=== PATIENT | female | born 1970 | race Caucasian/White ===

== ENCOUNTER 2017-04-22 16:09 | Outpatient (CLI) | payer MEDICAID ==
--- NOTE | 2017-04-23 11:27 | XRAY Report ---
LEFT ELBOW: 04/22/2017 COMPARISON: None. INDICATION: Elbow pain. TECHNIQUE: Two views. FINDINGS: Normal alignment. No evidence of acute fracture. No degenerative changes. Soft tissues grossly unremarkable without effusion. IMPRESSION: NEGATIVE ELBOW. TD: 04/23/2017 11:25 MTDD
== END 2017-04-22 16:10 | disposition home or self-care (01) ==
LOC: DI.S 16:09
PROVIDERS: ATTEND Nurse Practitioner Family
DX: M25.522 Pain in left elbow (principal)

== ENCOUNTER 2017-08-02 14:24 | Outpatient (CLI) | END 2017-08-02 14:25 | disposition home or self-care (01) ==

== ENCOUNTER 2017-11-05 14:26 | Outpatient (CLI) | payer MEDICAID ==
--- NOTE | 2017-11-05 16:03 | XRAY Report ---
Reason: KNEE PAIN,RIGHT Procedure Date: 11/05/2017 Accession Number: [id number] / [id number] Procedure: XR - Knee 3 View RT CPT Code: FULL RESULT: EXAM: RIGHT KNEE RADIOGRAPHY EXAM DATE: 11/05/2017 02:47 PM. CLINICAL HISTORY: KNEE PAIN,RIGHT. COMPARISON: None. TECHNIQUE: 3 views. FINDINGS: Bones: Normal. No fractures or bone lesions. Joints: Osteophyte superior patella. No effusion. No subluxations. Soft Tissues: Calcification in the patellar tendon distally.. No soft tissue swelling. IMPRESSION: Mild DJD [facility]
== END 2017-11-05 14:27 | disposition home or self-care (01) ==
LOC: DI 14:26
PROVIDERS: ATTEND Family Medicine
DX: M17.11 Unilateral primary osteoarthritis, right knee (principal)

== ENCOUNTER 2017-11-26 15:00 | Outpatient (CLI) | payer MEDICAID ==
--- NOTE | 2017-11-26 17:27 | XRAY Report ---
Reason: FOOT PAIN,LEFT Procedure Date: 11/26/2017 Accession Number: [id number] / [id number] Procedure: XR - Foot 2 View LT CPT Code: FULL RESULT: EXAM: LEFT FOOT RADIOGRAPHY EXAM DATE: 11/26/2017 03:19 PM. CLINICAL HISTORY: Injury (dropped frozen chicken on foot) 2 months ago. Persistent pain and dorsal edema, centered over the distal aspect of the first metatarsal. COMPARISON: FOOT 2 VIEW LT 08/02/2017 2:40 PM FOOT 3 VIEW LT 10/07/2015 1:05 PM FOOT 3 VIEW LT 07/12/2017 3:50 PM. TECHNIQUE: 2 views. FINDINGS: Bones: Normal. No fractures or bone lesions. Note that there is stable bipartite sesamoid bone along the medial plantar aspect of the first metatarsal head. Avulsion fracture lateral aspect base first distal phalanx, stable since 10/07/2015. Joints: Normal. No subluxations. Soft Tissues: Normal. No soft tissue swelling. IMPRESSION: No acute nor subacute bony abnormality. RAD[facility]
== END 2017-11-26 15:01 | disposition home or self-care (01) ==
LOC: DI 15:00
PROVIDERS: ATTEND Internal Medicine
DX: M79.672 Pain in left foot (principal); M79.89 Other specified soft tissue disorders

== ENCOUNTER 2018-02-28 08:50 | Outpatient (CLI) | payer MEDICAID ==
[2018-02-28] MEDS ORDERED: GADOBUTROL 10 MMOL/10 ML VIAL ONE (08:59)
[2018-02-28] MEDS ORDERED: GADOBUTROL 10 MMOL/10 ML VIAL IVP ONE (09:55)
--- NOTE | 2018-02-28 13:41 | MRI Report ---
Reason: MASS OF LEFT FOOT JOINT Procedure Date: 02/28/2018 Accession Number: [id number] / [id number] Procedure: MRI - Foot LT W/WO CPT Code: FULL RESULT: EXAM: LEFT HINDFOOT MRI WITHOUT AND WITH CONTRAST EXAM DATE: 02/28/2018 10:18 AM. CLINICAL HISTORY: Mass of left foot joint. COMPARISON: Radiographs 11/26/2017. TECHNIQUE: Multiplanar, multisequence T1-weighted and fluid-sensitive sequences of the hindfoot before and after administration of intravenous contrast. IV contrast: 9 mL of Gadavist. Other: None. FINDINGS: Bones: Diffuse bone marrow edema throughout the intermediate cuneiform. Subchondral fracture at the central to dorsal aspect distal articular surface. Mild contour deformity at the dorsal cortex. Ill-defined patchy bone marrow edema in the medial and lateral cuneiforms, lateral aspect of the navicular, and proximal aspects second and to a lesser extent third metatarsals. Subtle bone marrow edema at the dorsal aspect of the navicular and to a lesser extent talus at the capsular insertion and dorsal and lateral aspect of the talar neck. Subtle bone marrow edema and cystic changes at the dorsal aspect calcaneocuboid joint, likely degenerative. Foci of susceptibility artifact at the distal fibula, consistent with prior surgery. Articular Cartilage: Shallow partial-thickness cartilage loss at the tibiotalar joint. No focal defect. Ligaments: Sequelae of old sprains at the medial and lateral ligamentous structures. Distortion at the anterior talofibular ligament. A component of this may be due to scar. Intact fibers difficult to discern. Anterior tendons: Tibialis anterior, extensor hallucis longus, and extensor digitorum tendons unremarkable. Medial tendons: Tibialis posterior, flexor digitorum, and flexor hallucis longus tendons unremarkable. Lateral tendons: Moderate thickening at the peroneus longus and brevis tendons at the fibular tip. Flattened and distorted appearance of the peroneus longus tendon at the peroneal tubercle, concerning for intrasubstance tear. Suggestion of peroneus brevis tenodesis at the anterior aspect distal fibula. Fluid sensitive hyperintense signal in the substance of the proximal-most fibers. Distal insertion intact. Musculature: Mild fatty atrophy in the quadratus plantae and abductor digiti minimi muscles. This can be seen in the setting of lateral plantar nerve injury. Mild edema in the dorsal extensor musculature and dorsal aspect of the interosseous muscles adjacent to the second and third metatarsals. Other: No large joint effusion. Mild thickening and distortion of the dorsal talonavicular joint capsule. Minimal edema in the sinus tarsi. Tarsal tunnel unremarkable. Ill-defined mild to moderate subcutaneous edema and enhancement over the dorsal aspect of the naviculocuneiform joint. 0.3 x 0.5 x 0.5 cm focus of fluid present at the dorsal and lateral aspect naviculocuneiform joint with adjacent edema and enhancement. Edema and distortion in the adjacent joint capsule. IMPRESSION: 1. Bone marrow edema throughout the intermediate cuneiform with subchondral fracture at the distal articular surface. This may be due to impaction injury versus insufficiency. 2. Bone contusions versus reactive edema in the medial cuneiform, lateral cuneiform, navicular, and second and third metatarsals. 3. Mild to moderate reactive edema or subcutaneous contusion over the dorsal aspect navicular cuneiform joint. 4. 0.5 cm ganglion versus possible subtle hematoma at the dorsal and lateral aspect naviculocuneiform joint. Strain and possible disruption of the adjacent joint capsule. 5. Mild strain and possible partial-thickness tearing at the joint capsule dorsal talonavicular joint. 6. Postsurgical changes at the distal fibula. Postsurgical change versus possible intrasubstance tear at the peroneus brevis tenodesis site. 7. Moderate peroneus longus tendinopathy and possible intrasubstance tear at the peroneal tubercle. 8. Sequelae of old sprains medial and lateral ligamentous structures of the ankle with likely high-grade partial versus complete disruption anterior talofibular ligament. [facility] MUSCULOSKELETAL RADIOLOGY SECTION
== END 2018-02-28 08:51 | disposition home or self-care (01) ==
LOC: DI 08:50
PROVIDERS: ATTEND Orthopaedic Surgery
DX: S92.232A Displaced fracture of intermediate cuneiform of left foot, initial encounter for closed fracture (principal); S96.812A Strain of other specified muscles and tendons at ankle and foot level, left foot, initial encounter; M67.972 Unspecified disorder of synovium and tendon, left ankle and foot
CPT/HCPCS: 73720; A9585

== ENCOUNTER 2019-12-08 11:03 | Outpatient (CLI) | payer MEDICAID ==
[2019-12-08 15:21] LABS: BASOPHILS # (AUTO) 0.1 10^3/uL (0.0-0.1); BASOPHILS % (AUTO) 0.8 %; EOSINOPHILS # (AUTO) 0.3 10^3/uL (0.0-0.7); EOSINOPHILS % (AUTO) 4.8 %; HGB - HEMOGLOBIN 13.3 g/dL (12.0-16.0); LYMPHOCYTES # (AUTO) 2.3 10^3/uL (1.5-3.5); LYMPHOCYTES % (AUTO) 34.9 %; MEAN CORPUSCULAR HEMOGLOBIN 30.6 pg (27.0-31.0); MEAN CORPUSCULAR HGB CONC 32.4 g/dL (32.0-36.0); MEAN CORPUSCULAR VOLUME 94.7 fL (81.0-99.0); MEAN PLATELET VOLUME 9.3 fL (7.9-10.8); MONOCYTES # (AUTO) 0.6 10^3/uL (0.0-1.0); MONOCYTES % (AUTO) 8.9 %; NEUTROPHILS # (AUTO) 3.3 10^3/uL (1.5-6.6); NEUTROPHILS % (AUTO) 50.4 %; PLT - PLATELET COUNT 323 10^3/uL (130-450); RED BLOOD COUNT 4.34 10^6/uL (4.20-5.40); RED CELL DISTRIBUTION WIDTH 12.8 % (12.0-15.0); WHITE BLOOD COUNT 6.6 x10^3/uL (4.8-10.8)
[2019-12-08 15:29] LABS: ALBUMIN/GLOBULIN RATIO 1.3 (1.0-2.2); ALKALINE PHOSPHATASE 117 IU/L (42-121); ALT ALANINE AMINOTRANSFERASE 14 IU/L (10-60); AST ASPARTATE AMINOTRANSFERASE 18 IU/L (10-42); BILIRUBIN,TOTAL 0.3 mg/dL (0.2-1.0); BUN - BLOOD UREA NITROGEN 12 mg/dL (6-20); CALCIUM 9.2 mg/dL (8.5-10.3); CARBON DIOXIDE - CO2 28 mmol/L (21-32); CHLORIDE 100 mmol/L (101-111); CHOLESTEROL 231 mg/dL; CREATININE 0.6 mg/dL (0.4-1.0); GLUCOSE 100 mg/dL (70-100); HDL CHOLESTEROL 77 mg/dL; LDL CHOLESTEROL,CALCULATED 143 mg/dL; LDL/HDL RATIO 1.9 (<4.4); SODIUM 137 mmol/L (135-145); TOTAL PROTEIN 7.2 g/dL (6.7-8.2); VLDL CHOLESTEROL 11 mg/dL
== END 2019-12-08 11:04 | disposition home or self-care (01) ==
LOC: LAB.S 11:03
PROVIDERS: ATTEND Registered Nurse
DX: G43.909 Migraine, unspecified, not intractable, without status migrainosus (principal); M79.7 Fibromyalgia; Z72.0 Tobacco use; F32.9 Major depressive disorder, single episode, unspecified; I10 Essential (primary) hypertension
CPT/HCPCS: 36415; 80053; 80061; 83721; 84443; 85025

== ENCOUNTER 2020-05-09 11:08 | Outpatient (CLI) | payer MEDICAID ==
--- NOTE | 2020-05-09 15:20 | CT Report ---
PROCEDURE: Low Dose Lung Cancer Screen INDICATIONS: HX OF SMOKING TECHNIQUE: Noncontrast low-dose 5 mm thick sections acquired from the pulmonary apices to the posterior costophr enic angles. 7 mm thick coronal and sagittal MIP reformats were then acquired. For radiation dose r eduction, the following was used: automated exposure control, adjustment of mA and/or kV according t o patient size. COMPARISON: None. FINDINGS: Image quality: Excellent. Lungs and pleura: Pleural-based left lower lobe lateral nodule is present measuring 3 mm on series 4 image 230. No effusions or consolidations. No pneumothorax. Mediastinum: Heart size is normal. No pericardial effusion. No mediastinal adenopathy by size crit eria. Thoracic aorta and central pulmonary arteries are normal in size. Esophagus is normal in timi natali. No hiatal hernia. Bones and chest wall: No suspicious bony lesions. No vertebral body compression fractures. No axil carina or supraclavicular adenopathy by size criteria. The thyroid is normal in size. Abdomen: Visualized upper abdomen solid organs and bowel loops appear normal in the absence of contr ast. IMPRESSION: 1. 3 mm pleural-based left lower lobe nodule. Is nonspecific and no priors are available for comparis on. Lung rads 2. Recommend interval CT follow-up in 12 months. Reviewed by: Nahomy Freeman MD on 05/09/2020 3:18 PM PDT Approved by: Nahomy Freeman MD on 05/09/2020 3:18 PM PDT Station ID: [id number]
== END 2020-05-09 11:09 | disposition home or self-care (01) ==
LOC: DI 11:08
PROVIDERS: ATTEND Registered Nurse
DX: Z12.2 Encounter for screening for malignant neoplasm of respiratory organs (principal); F17.210 Nicotine dependence, cigarettes, uncomplicated; R91.1 Solitary pulmonary nodule

== ENCOUNTER 2020-05-13 11:29 | Outpatient (CLI) | payer MEDICAID ==
--- NOTE | 2020-05-14 08:11 | Mammography Report ---
BILATERAL DIGITAL SCREENING MAMMOGRAM 3D/2D: 05/13/2020 CLINICAL: Family history of breast cancer. Comparison is made to exam dated: 10/14/2011 mammogram - [facility]. There are scat tered fibroglandular elements in both breasts. No significant masses, calcifications, or other findings are seen in either breast. There has been no significant interval change. IMPRESSION: NEGATIVE There is no mammographic evidence of malignancy. A 1 year screening mammogram is recommended. This exam was interpreted at Station ID: [id number]. NOTE: For mammograms, a report in lay terms will be sent to the patient. Approximately 15% of breast malignancies will not be visualized mammographically. In the management of a palpable breast mass, a negative mammogram must not discourage biopsy of a clinically suspicious lesion. Electronically Signed By: Jon León M.D. aty/penrad:05/13/2020 14:13:17 ACR BI-RADS Category 1: Negative 3341F PARENCHYMAL PATTERN: (A) - The breast(s) demonstrate(s) scattered fibroglandular densities. BI-RADS CATEGORY: (1) - 1 RECOMMENDATION: (ANNUAL) - Recommend routine annual screening mammography. [id number] 1 year screening LATERALITY: (B)
== END 2020-05-13 11:30 | disposition home or self-care (01) ==
LOC: DI.S 11:29
PROVIDERS: ATTEND Registered Nurse
DX: Z12.31 Encounter for screening mammogram for malignant neoplasm of breast (principal); Z80.3 Family history of malignant neoplasm of breast

== ENCOUNTER 2021-01-06 09:03 | Outpatient (CLI) | payer MEDICAID ==
[2021-01-06 14:12] LABS: BASOPHILS # (AUTO) 0.1 10^3/uL (0.0-0.1); BASOPHILS % (AUTO) 0.7 %; EOSINOPHILS # (AUTO) 0.2 10^3/uL (0.0-0.7); EOSINOPHILS % (AUTO) 2.6 %; HCT - HEMATOCRIT 41.5 % (37.0-47.0); HGB - HEMOGLOBIN 13.5 g/dL (12.0-16.0); LYMPHOCYTES # (AUTO) 2.4 10^3/uL (1.5-3.5); LYMPHOCYTES % (AUTO) 32.6 %; MEAN CORPUSCULAR HEMOGLOBIN 30.7 pg (27.0-31.0); MEAN CORPUSCULAR HGB CONC 32.5 g/dL (32.0-36.0); MEAN CORPUSCULAR VOLUME 94.3 fL (81.0-99.0); MEAN PLATELET VOLUME 9.4 fL (7.9-10.8); MONOCYTES # (AUTO) 0.7 10^3/uL (0.0-1.0); MONOCYTES % (AUTO) 9.3 %; NEUTROPHILS % (AUTO) 54.4 %; PLT - PLATELET COUNT 307 10^3/uL (130-450); WHITE BLOOD COUNT 7.3 x10^3/uL (4.8-10.8)
[2021-01-06 15:49] LABS: ALBUMIN 3.8 g/dL (3.2-5.5); ALBUMIN/GLOBULIN RATIO 1.1 (1.0-2.2); ALKALINE PHOSPHATASE 116 IU/L (42-121); ALT ALANINE AMINOTRANSFERASE 12 IU/L (10-60); AST ASPARTATE AMINOTRANSFERASE 15 IU/L (10-42); BILIRUBIN,TOTAL < 0.2 mg/dL (0.2-1.0); BUN - BLOOD UREA NITROGEN 23 mg/dL (6-20); CARBON DIOXIDE - CO2 27 mmol/L (21-32); CHLORIDE 101 mmol/L (101-111); CHOL/HDL RATIO 3.1 (<4.4); CHOLESTEROL 225 mg/dL; CREATININE 0.8 mg/dL (0.4-1.0); GFR - MDRD 76 (>89); GLUCOSE 98 mg/dL (70-100); HDL CHOLESTEROL 73 mg/dL; LDL CHOLESTEROL,CALCULATED 133 mg/dL; LDL/HDL RATIO 1.8 (<4.4); SODIUM 137 mmol/L (135-145); TOTAL PROTEIN 7.2 g/dL (6.7-8.2); TRIGLYCERIDES 97 mg/dL; VLDL CHOLESTEROL 19 mg/dL
[2021-01-06 15:59] LABS: THYROID STIMULATING HORMONE 2.32 uIU/mL (0.34-5.60)
[2021-01-07 09:21] LABS: HEPATITIS C ANTIBODY NON-REACTIVE (NON-REACTIVE)
[2021-01-07 15:16] LABS: HIV AG/AB 4TH GEN NON-REACTIVE (NON-REACTIVE)
== END 2021-01-06 09:04 | disposition home or self-care (01) ==
LOC: LAB.S 09:03
PROVIDERS: ATTEND Registered Nurse
DX: Z00.00 Encounter for general adult medical examination without abnormal findings (principal); N93.0 Postcoital and contact bleeding; R53.83 Other fatigue; G43.909 Migraine, unspecified, not intractable, without status migrainosus; M79.7 Fibromyalgia; I10 Essential (primary) hypertension; F32.A Depression, unspecified
CPT/HCPCS: 36415; 80053; 80061; 83721; 84443; 85025; 86803; 87389

== ENCOUNTER 2021-11-24 09:46 | Outpatient (CLI) | payer MEDICAID ==
[2021-11-24 15:01] LABS: BASOPHILS # (AUTO) 0.1 10^3/uL (0.0-0.1); BASOPHILS % (AUTO) 0.7 %; EOSINOPHILS # (AUTO) 0.2 10^3/uL (0.0-0.7); EOSINOPHILS % (AUTO) 2.5 %; HCT - HEMATOCRIT 39.4 % (37.0-47.0); LYMPHOCYTES # (AUTO) 2.1 10^3/uL (1.5-3.5); MEAN CORPUSCULAR HEMOGLOBIN 30.4 pg (27.0-31.0); MEAN CORPUSCULAR VOLUME 92.1 fL (81.0-99.0); MEAN PLATELET VOLUME 9.3 fL (7.9-10.8); MONOCYTES # (AUTO) 0.6 10^3/uL (0.0-1.0); MONOCYTES % (AUTO) 9.5 %; NEUTROPHILS # (AUTO) 3.8 10^3/uL (1.5-6.6); NEUTROPHILS % (AUTO) 56.2 %; PLT - PLATELET COUNT 352 10^3/uL (130-450); RED BLOOD COUNT 4.28 10^6/uL (4.20-5.40); RED CELL DISTRIBUTION WIDTH 13.2 % (12.0-15.0); WHITE BLOOD COUNT 6.8 x10^3/uL (4.8-10.8)
[2021-11-24 15:08] LABS: ALBUMIN/GLOBULIN RATIO 1.3 (1.0-2.2); ALKALINE PHOSPHATASE 94 IU/L (42-121); ALT ALANINE AMINOTRANSFERASE 17 IU/L (10-60); AST ASPARTATE AMINOTRANSFERASE 20 IU/L (10-42); BILIRUBIN,TOTAL 0.5 mg/dL (0.2-1.0); BUN - BLOOD UREA NITROGEN 18 mg/dL (6-20); CALCIUM 9.6 mg/dL (8.5-10.3); CARBON DIOXIDE - CO2 28 mmol/L (21-32); CHLORIDE 103 mmol/L (101-111); CHOL/HDL RATIO 2.8 (<4.4); CHOLESTEROL 222 mg/dL; CREATININE 0.8 mg/dL (0.4-1.0); GFR - MDRD 75 (>89); GLUCOSE 101 mg/dL (70-100); HDL CHOLESTEROL 80 mg/dL; LDL CHOLESTEROL,CALCULATED 130 mg/dL; LDL/HDL RATIO 1.6 (<4.4); SODIUM 139 mmol/L (135-145); TOTAL PROTEIN 7.2 g/dL (6.7-8.2); TRIGLYCERIDES 61 mg/dL; VLDL CHOLESTEROL 12 mg/dL
[2021-11-24 15:18] LABS: THYROID STIMULATING HORMONE 2.11 uIU/mL (0.34-5.60)
== END 2021-11-24 09:47 | disposition home or self-care (01) ==
LOC: LAB.S 09:46
PROVIDERS: ATTEND Registered Nurse
DX: Z79.899 Other long term (current) drug therapy (principal); Z13.220 Encounter for screening for lipoid disorders; Z13.29 Encounter for screening for other suspected endocrine disorder
CPT/HCPCS: 36415; 80053; 80061; 83721; 84443; 85025

== ENCOUNTER 2022-05-08 13:23 | Outpatient (CLI) | payer MEDICAID ==
--- NOTE | 2022-05-08 14:30 | XRAY Report ---
PROCEDURE: Cervical Spine 2 View INDICATIONS: CERVICAL SPONDYLOSIS TECHNIQUE: 3 view(s) of the cervical spine were acquired. COMPARISON: None. FINDINGS: Bones: No fractures or dislocations to the C7-T1 level. The lateral masses of C1 appear intact o n the odontoid view. No suspicious bony lesions. There is some mild degenerative disc disease present at C6-C7. Soft tissues: No prevertebral soft tissue swelling. IMPRESSION: 1. No evidence for acute osseous abnormality involving the cervical spine. 2. Mild degenerative disc disease present C6-C7. Reviewed by: Alejandro Car MD on 05/08/2022 2:28 PM PDT Approved by: Alejandro Car MD on 05/08/2022 2:28 PM PDT Station ID: [id number]
== END 2022-05-08 13:24 | disposition home or self-care (01) ==
LOC: DI.S 13:23
PROVIDERS: ATTEND Registered Nurse
DX: M47.812 Spondylosis without myelopathy or radiculopathy, cervical region (principal); M50.323 Other cervical disc degeneration at C6-C7 level

== ENCOUNTER 2022-06-09 07:00 | Outpatient (CLI) | payer MEDICAID ==
--- NOTE | 2022-06-09 12:16 | XRAY Report ---
PROCEDURE: Ankle 3 View RT INDICATIONS: CONTUSION OF RIGHT ANKLE TECHNIQUE: 3 views of the ankle were acquired. COMPARISON: None. FINDINGS: Bones: No fractures or dislocations. Ankle mortise is normally aligned. No suspicious bony lesions . Soft tissues: No tibiotalar joint effusion. Achilles tendon appears normal. IMPRESSION: No acute bony abnormality. Reviewed by: Flavio Sandoval on 06/09/2022 12:14 PM PDT Approved by: Flavio Sandoval on 06/09/2022 12:14 PM PDT Station ID: [id number]
== END 2022-06-09 23:59 | disposition home or self-care (01) ==
LOC: DI.S 07:00
PROVIDERS: ATTEND Emergency Medicine
DX: S90.01XA Contusion of right ankle, initial encounter (principal)

== ENCOUNTER 2022-07-10 08:00 | Outpatient (CLI) | payer MEDICAID | END 2022-07-10 23:59 | disposition home or self-care (01) | LOC: LAB 08:00 | PROVIDERS: ATTEND Physician Assistant Medical | DX: N39.0 Urinary tract infection, site not specified (principal) | CPT/HCPCS: 87086; 87181 ==

== ENCOUNTER 2022-08-31 08:00 | Outpatient (CLI) | payer MEDICAID ==
--- NOTE | 2022-08-31 13:32 | XRAY Report ---
PROCEDURE: Wrist 3 View LT INDICATIONS: SPRAIN OF LEFT WRIST TECHNIQUE: 3 views of the wrist were acquired. COMPARISON: None. FINDINGS: Bones: No fractures or dislocations. No suspicious bony lesions. Soft tissues: No suspicious soft tissue calcifications or masses. IMPRESSION: No acute bony abnormality. Reviewed by: Saran Benitez MD on 08/31/2022 12:23 PM PDT Approved by: Saran Benitez MD on 08/31/2022 12:23 PM PDT Station ID: [id number]
== END 2022-08-31 23:59 | disposition home or self-care (01) ==
LOC: DI.S 08:00
PROVIDERS: ATTEND Physician Assistant Medical
DX: S63.592A Other specified sprain of left wrist, initial encounter (principal)

== ENCOUNTER 2022-09-07 08:00 | Outpatient (CLI) | payer MEDICAID ==
--- NOTE | 2022-09-08 11:11 | XRAY Report ---
PROCEDURE: Wrist 3 View LT INDICATIONS: LEFT WRIST PAIN/SPRAIN TECHNIQUE: 4 views of the wrist were acquired. COMPARISON: Left wrist radiographs 08/31/2022 FINDINGS: Bones: No fractures or dislocations. No suspicious bony lesions. Soft tissues: No suspicious soft tissue calcifications . IMPRESSION: No acute bony abnormality. If there is anatomic snuff box tenderness, consider wrist immobilization a nd repeat radiographs in 10-14 days or cross-sectional imaging now. If pain persists with conservativ e management, consider repeat radiographs in 10-14 days or cross-sectional imaging. Reviewed by: Jarocho Foley MD on 09/08/2022 11:09 AM PDT Approved by: Jarocho Foley MD on 09/08/2022 11:09 AM PDT Station ID: [id number]
== END 2022-09-07 23:59 | disposition home or self-care (01) ==
LOC: DI.WOS 08:00
PROVIDERS: ATTEND Physician Assistant Surgical
DX: S63.592A Other specified sprain of left wrist, initial encounter (principal)

== ENCOUNTER 2022-09-10 10:47 | Outpatient (CLI) | payer MEDICAID ==
--- NOTE | 2022-09-10 17:07 | MRI Report ---
PROCEDURE: WRIST WO - LT INDICATIONS: SPONTANEOUS RUPTURE OF FLEXOR TENDON TECHNIQUE: Noncontrast coronal proton density fast spin echo and T2 fast spin echo with fat saturation; coronal 3-D gradient echo, axial T1 spin echo and T2 fast spin echo with fat saturation, sagittal T1 spin ech o through the wrist. COMPARISON: Wrist radiograph dated 09/07/2022 and 08/31/2022. FINDINGS: Image quality: Excellent. Bones and cartilage: Osteoarthritic changes are noted throughout wrist joints particularly involving radiocarpal and ulnar carpal joints with joint space narrowing, subchondral sclerosis and mild edema and subcortical cystic changes. No fracture or dislocation. No suspicious intraosseous lesion. Suscep tibility artifacts are noted in distal ulnar suggestive of prior surgery. No evidence of avascular ne crosis. Carpal ligaments: The scapholunate and lunotriquetral ligaments appear intact. In the absence of in tra-articular contrast, the extrinsic carpal ligaments are not well identified. On sagittal images, the pisohamate ligament appears intact. Triangular fibrocartilage complex: Signal abnormality involving central portion of triangular fibroca rtilage is seen concerning for TFCC perforation versus postsurgical changes, suggest clinical correla tion. The extensor carpi ulnaris tendon is thickened at the level of ulnar styloid.. Tendons and soft tissues: The carpal tunnel structures appear normal, including the median nerve. T he ulnar nerve appears normal within Guyon's canal. All six extensor tendon compartments demonstrate normal morphology, without pathologic tendon sheath fluid. Lobulated cystic structure is noted over volar aspect of distal radius and measures up to 6 x 14 x 15 mm in size the to the flexor carpi radia lis tendon likely represent a ganglion cyst. IMPRESSION: 1. No evidence of extensor or flexor tendon rupture. Tendinosis involving extensor carpi ulnaris tend on at the level of ulnar styloid. 2. Suggestion of postsurgical changes involving distal ulna/triangular fibrocartilage with susceptibi lity artifact. Mild wrist joint osteoarthritis as above. No fracture or dislocation. No evidence of a vascular necrosis. 3. Finding is concerning for TFC perforation near its central portion versus postsurgical changes sug gest clinical correlation. 4. Scapholunate and lunotriquetral ligaments are grossly intact. 5. Suggestion of a ganglion cyst over distal radius/radial styloid as above. Reviewed by: Saran Benitez MD on 09/10/2022 5:05 PM PDT Approved by: Saran Benitez MD on 09/10/2022 5:05 PM PDT Station ID: [id number]
== END 2022-09-10 10:48 | disposition home or self-care (01) ==
LOC: DI 10:47
PROVIDERS: ATTEND Physician Assistant Surgical
DX: M19.032 Primary osteoarthritis, left wrist (principal); M67.932 Unspecified disorder of synovium and tendon, left forearm; M66.332 Spontaneous rupture of flexor tendons, left forearm

== ENCOUNTER 2023-05-19 13:33 | Outpatient (CLI) | payer MEDICAID ==
--- NOTE | 2023-05-20 09:41 | Mammography Report ---
BILATERAL DIGITAL SCREENING MAMMOGRAM 3D/2D: 05/19/2023 CLINICAL: Family History of breast cancer Routine screening. Comparison is made to exam dated: 05/13/2020 mammogram - [facility]. There are scattered areas of fibroglandular density in both breasts (category b / 25%-50% glandular t issue). No significant masses, calcifications, or other findings are seen in either breast. There has been no significant interval change. IMPRESSION: NEGATIVE There is no mammographic evidence of malignancy. A 1 year screening mammogram is recommended. Based on the Tyrer Cuzick model (a risk assessment model) the patient's lifetime risk is 9.8% and her 10 year risk is 2.7%. According to the ACR, ACS, and NCCN guidelines, an annual breast MRI exam sergo g with mammogram is recommended if the patient's lifetime risk is 20% or greater. This exam was interpreted at Station ID: [id number]. NOTE: For mammograms, a report in lay terms will be sent to the patient. Approximately 15% of breast malignancies will not be visualized mammographically. In the management of a palpable breast mass, a negative mammogram must not discourage biopsy of a clinically suspicious lesion. Electronically Signed By: Marisa rosas/supriya:05/19/2023 16:48:33 letter sent: No_Letter ACR BI-RADS Category 1: Negative 3341F PARENCHYMAL PATTERN: (A) - The breast(s) demonstrate(s) scattered fibroglandular densities. BI-RADS CATEGORY: (1) - 1 RECOMMENDATION: (ANNUAL) - Recommend routine annual screening mammography. [id number] 1 year screening LATERALITY: (B)
== END 2023-05-19 13:34 | disposition home or self-care (01) ==
LOC: DI 13:33
PROVIDERS: ATTEND Registered Nurse
DX: Z12.31 Encounter for screening mammogram for malignant neoplasm of breast (principal); R92.323 Mammographic fibroglandular density, bilateral breasts; Z80.3 Family history of malignant neoplasm of breast

== ENCOUNTER 2023-05-19 13:35 | Outpatient (CLI) | payer MEDICAID ==
--- NOTE | 2023-05-19 16:47 | CT Report ---
PROCEDURE: Lung Cancer Screen INDICATIONS: POST MENOPAUSAL, HIST OF SMOKING TECHNIQUE: A CT scan of the chest was performed. Intravenous contrast media was not administered. Images were re corded and evaluated at appropriate window settings. Reformats: axial MIP of the chest, coronal and s agittal. For radiation dose reduction, the following was used: automated exposure control, adjustment of mA and/or kV according to patient size. COMPARISON: Lung cancer screening chest CT 05/09/2020. FINDINGS: Image quality: Excellent. Prior cancer history: Unknown Lungs and pleura: No pleural effusions. No pneumothorax. Mild emphysematous change. A few small pulmo nary nodules which are unchanged compared to 202. -Right lower lobe pulmonary nodule measuring 0.5 cm, (4/66). -Left lower lobe pulmonary nodule measuring 0.4 cm, (4/66). -Left lower lobe pulmonary nodule juxta fissural measuring 0.4 cm, (4/55). No mass. No new nodules identified. Mediastinum: Heart size is normal. Moderate coronary artery calcifications. No pericardial effusion. No large vessel abnormality. No mediastinal adenopathy by size criteria. Chest wall and lower neck: Thyroid is unremarkable. No axillary or supraclavicular adenopathy by size . Bones: No aggressive osseous abnormality. Upper Abdomen: Unremarkable. IMPRESSION: Lung RAD: 2 - Benign. Recommendation: Continue annual screening in 12 Months with LDCT Non-Lung Significant Findings: Coronary Arterial Calcification - Moderate or Severe. Reviewed by: Jhon Jacques MD on 05/19/2023 4:46 PM PDT Approved by: Jhon Jacques MD on 05/19/2023 4:46 PM PDT Station ID: [id number]
--- NOTE | 2023-05-19 16:48 | DEXA Report ---
PROCEDURE: Dexa Spine and/or Hip INDICATIONS: POST MENOPAUSAL, HIST OF SMOKING TECHNIQUE: Dual energy x-ray absorptiometry (DXA) was performed on a [employer] System. Regions measur ed are the AP Spine, femoral neck, and if needed forearm. COMPARISON: None. FINDINGS: Left Femoral Neck: Bone Mineral Density: 0.935 g/cm/cm, T score: -0.7. Left Hip: Bone Mineral Density: 0.957 g/cm/cm,T score: -0.4. Left Forearm: Bone Mineral Density: 0.848 g/cm/cm, T score: -0.3. (T score greater or equal to -1.0: NORMAL) (T score from -1.1 to -2.4: OSTEOPENIA) (T score less than or equal to -2.5 to: OSTEOPOROSIS) Impression: By WHO criteria, this patient has normal bone density. Patients with diagnosis of osteoporosis or osteopenia should have regular bone mineral density assess ment. For those eligible for Medicare, routine testing is allowed once every 2 years. Testing frequ ency can be increased for patients who have rapidly progressing disease or for those who are receivin g medical therapy to restore bone mass. Reviewed by: Jarocho Brown MD on 05/19/2023 4:46 PM PDT Approved by: Jarocho Brown MD on 05/19/2023 4:46 PM PDT Station ID: [id number]
== END 2023-05-19 13:36 | disposition home or self-care (01) ==
LOC: DI 13:35
PROVIDERS: ATTEND Registered Nurse
DX: Z12.2 Encounter for screening for malignant neoplasm of respiratory organs (principal); I25.10 Atherosclerotic heart disease of native coronary artery without angina pectoris; Z78.0 Asymptomatic menopausal state; Z87.891 Personal history of nicotine dependence